=== PATIENT | female | born 1960 | race Caucasian/White ===

== ENCOUNTER → 2016-10-25 | Outpatient (CLI) | payer OTHER ==
--- NOTE | ~2016-10-25 | MR113 ---
[facility] A Service of [facility] & [facility] / [facility] RADIOLOGY TEXT RESULTS PATIENT: SACHIN IBANEZ LOCATION: [facility] : 60 UNIT #: [id number] AGE: [address]: Juaquin Tavares MD SEX: F ORDER DR: [id number] [facility] [address] [place], [place] [address] [id number] O MR#: [id number] #: [id number] NAME: SACHIN IBANEZ. : 1960 SEX: F STUDY DATE/TIME: 10/25/2016 18:25 UNIT: [facility] ROOM: STUDY DESCRIPTION: MR Lumbar Wo Contrast Attending Physician: Juaquin Tavares M.D. Referring Physician: Juaquin Tavares M.D. Ordering Physician: Juaquin Tavares M.D. Primary Care Physician: Karo Mclain A.P.R.N. MRI CENTER REPORT This report is preliminary unless electronic signature is present. EXAM Lumbar MRI HISTORY Mild low back pain, chronically over the past 15 years. Pain has become more consistent and worsened over the past 2 months. This, accompanied by a tingling in the right leg and restless legs syndrome. TECHNIQUE Multiplanar imaging lumbar spine was performed with short and long TR. FINDINGS Alignment is satisfactory. The L1-L2 level is normal. At L2-3, there is mild disc degeneration without bulging or herniation. At L3-4, there is mild disc degeneration without bulging or herniation. At L4-5, the disc space is collapsed. There is a degenerative grade 1 retrolisthesis with broad-based posterior disc bulging and osteophyte formation accompanied by mild posterior facet hypertrophy and reactive endplate changes. No pars defects are seen. Foraminal stenosis is mild bilaterally. At L5-S1, there is central disc protrusion that is mild. The facets are intact. Foraminal narrowing is mild bilaterally. 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 These are typically asymptomatic. The conus is normal. There is no evidence of marrow edema or paraspinous mass. IMPRESSION 1. Advanced degenerative disc disease L4-5 with reactive endplate changes [facility]. [facility] A Service of [facility] & [facility] / [facility] RADIOLOGY TEXT RESULTS PATIENT: SACHIN IBANEZ LOCATION: [facility] : 60 UNIT #: [id number] AGE: [address]: Juaquin Tavares MD SEX: F ORDER DR: and mild central stenosis with mild bilateral foraminal stenosis. 2. Milder degenerative changes at the other lumbar levels as described above level by level. 3. Mild central disc protrusion L5-S1. Dictated by... Wai Koenig M.D. THIS IS AN ELECTRONICALLY VERIFIED REPORT Wai Koenig M.D. at 10/28/2016 10:57 AM RLF/yara TD: 10/26/2016 19:41 JOB #: [id number] MRI CENTER REPORT Page 1 of 1 COPY
== END | disposition home or self-care (01) ==
LOC: CMRI 17:55
DX: M54.16 Radiculopathy, lumbar region (principal); M51.16 Intervertebral disc disorders with radiculopathy, lumbar region; M48.06 Spinal stenosis, lumbar region; M47.26 Other spondylosis with radiculopathy, lumbar region; M51.17 Intervertebral disc disorders with radiculopathy, lumbosacral region
CPT/HCPCS: 72148